=== PATIENT | female | born 1960 | race African-American/Black ===

== ENCOUNTER 2017-05-07 01:56 | Inpatient (IN) | payer OTHER ==
[~2017-05-07] VITALS: Ht 170.2 cm; Wt 158.8 kg
[~2017-05-07 01:56] MED LIST: ATENOLOL; LISI-604 PO
[2017-05-07] MEDS ORDERED: ASPIRIN 81MG TABLET PO ONE (02:30)
[2017-05-07] MEDS ORDERED: NITROGLYCERIN 0.4MG TABLET SL SL PRN (02:30)
[2017-05-07 03:11] LABS: BASOPHILS % 0.2 % (0.0-2.0); HEMATOCRIT. 39.6 % (36.0-48.0); HEMOGLOBIN. 12.9 g/dL (12.0-16.0); LYMPHOCYTES % 8.5 % (20.0-50.0); MEAN CORPUSCULAR HEMOGLOBIN 29.1 pg (28.0-32.0); MEAN CORPUSCULAR VOLUME 89.5 fL (81.0-99.0); MEAN PLATELET VOLUME 7.5 fl (7.4-10.4); MONOCYTES % 5.5 % (2.0-8.0); NEUTROPHILS % 85.8 % (40.0-76.0); PLATELET 386 x1000/uL (130-400); RED BLOOD CELL COUNT 4.43 mill/uL (4.2-5.4); RED CELL DISTRIBUTION WIDTH 14.2 % (11.6-14.6)
[2017-05-07 03:26] LABS: CARBON DIOXIDE 30 mEq/L (21-32); CHLORIDE 105 mEq/L (98-107); TROPONIN I < 0.02 ng/mL (0.00-0.04)
[2017-05-07 03:51] LABS: INR 1.1; PROTHROMBIN TIME 10.9 sec (9.4-11.6)
[2017-05-07] MEDS ORDERED: GUAIFENESIN/CODEINE 100-10MG/5ML UDC PO ONE (05:45)
[2017-05-07] MEDS ORDERED: IPRATROPIUM/ALBUTEROL 0.5-3(2.5)MG/3ML NEB INH PRN (06:15)
[2017-05-07] MEDS ORDERED: CLONIDINE 0.1MG TABLET PO PRN (06:15)
[2017-05-07] MEDS ORDERED: HYDROCODONE/ACETAMINOPHEN 5/325MG TABLET PO PRN (06:15)
[2017-05-07] MEDS ORDERED: ENOXAPARIN 40MG/0.4ML SYR SUBCUT SCH (06:15)
[2017-05-07] MEDS ORDERED: ACETAMINOPHEN 325MG TABLET PO PRN (06:15)
[2017-05-07] MEDS ORDERED: ONDANSETRON HCL 4MG/2ML VIAL IV PRN (06:15)
[2017-05-07] MEDS ORDERED: DOCUSATE SODIUM 100MG CAPSULE PO PRN (06:15)
[2017-05-07] MEDS ORDERED: MORPHINE SULFATE 2 MG/ML CPJ (NOT FOR IM USE) IV PRN (06:15)
[2017-05-07] MEDS: GUAIFENESIN 200MG/10ML SUGAR FREE UDC PO PRN ×2 (09:24→20:31)
[2017-05-07 13:40] VITALS: BP 137/63
[2017-05-07] MEDS: FUROSEMIDE 40MG/4ML VIAL IV SCH (14:41)
[2017-05-07] MEDS: ASPIRIN 81MG EC TABLET PO SCH (14:41)
[2017-05-07] MEDS: AMLODIPINE 10MG TABLET PO SCH (14:42)
[2017-05-07] MEDS: ENOXAPARIN 30MG/0.3ML SYR SUBCUT SCH ×2 (16:09→20:26)
[2017-05-07 17:11] LABS: KETONES URINE NEGATIVE (NEGATIVE); LEUKOCYTE ESTERASE URINE NEGATIVE (NEGATIVE); NITRITE URINE NEGATIVE (NEGATIVE); OCCULT BLOOD URINE 3+ (NEGATIVE); PROTEIN URINE NEGATIVE (NEGATIVE); SPECIFIC GRAVITY URINE 1.007 (1.005-1.030); UROBILINOGEN URINE 0.2 E.U./dL (0.2-1.0)
[2017-05-07 17:14] LABS: CLARITY URINE SLIGHTLY HAZY (CLEAR); COLOR URINE YELLOW (YELLOW)
[2017-05-07 17:20] LABS: *AMPHETAMINES SCREEN URINE NEGATIVE (NEGATIVE); *BARBITURATES SCREEN URINE NEGATIVE (NEGATIVE); *BENZODIAZEPINES SCREEN URINE NEGATIVE (NEGATIVE); *COCAINE SCREEN URINE NEGATIVE (NEGATIVE); CANNABINOID URINE SCREEN NEGATIVE (NEGATIVE); METHADONE URINE SCREEN NEGATIVE (NEGATIVE); OPIATES URINE SCREEN PRESUMTIVE POSITIVE (NEGATIVE); PHENCYCLIDINE URINE SCREEN NEGATIVE (NEGATIVE)
[2017-05-07] MEDS ORDERED: BENZ100C86 PO (18:34)
[2017-05-07] MEDS ORDERED: ALBU18HF2 IH (18:52)
[2017-05-07] MEDS ORDERED: LEVO200T8 PO (18:52)
[2017-05-07] MEDS ORDERED: FLUT1DIS6 IH (18:52)
[2017-05-07] MEDS ORDERED: FLUT9.9S NS (18:52)
[2017-05-07] MEDS ORDERED: P20 PO (18:52)
[2017-05-07] MEDS ORDERED: OCD PO (18:52)
[2017-05-07] MEDS ORDERED: HYDR-3280 MT (18:52)
[2017-05-07 20:00] VITALS: BP 130/67
[2017-05-07] MEDS: ZOLPIDEM TARTRATE 5MG TABLET PO PRN (20:26)
[2017-05-08] VITALS (7 sets, daily range): BP systolic 125–152; BP diastolic 58–84
[2017-05-08 00:33] LABS: CREATINE KINASE 122 IU/L (26-192); CREATINE KINASE MB FRACTION 1.6 ng/mL (0.5-3.6)
[2017-05-08 00:42] LABS: TROPONIN I < 0.02 ng/mL (0.00-0.04)
[2017-05-08 06:42] LABS: HEMATOCRIT. 40.5 % (36.0-48.0); HEMOGLOBIN. 13.3 g/dL (12.0-16.0); LYMPHOCYTES % 16.2 % (20.0-50.0); MEAN CORPUSCULAR HEMOGLOBIN 29.7 pg (28.0-32.0); MEAN CORPUSCULAR VOLUME 90.5 fL (81.0-99.0); MEAN PLATELET VOLUME 7.5 fl (7.4-10.4); MONOCYTES % 6.5 % (2.0-8.0); NEUTROPHILS % 77.3 % (40.0-76.0); PLATELET 368 x1000/uL (130-400); RED BLOOD CELL COUNT 4.48 mill/uL (4.2-5.4); RED CELL DISTRIBUTION WIDTH 14.3 % (11.6-14.6)
[2017-05-08] MEDS: ASPIRIN 81MG EC TABLET PO SCH (08:25)
[2017-05-08] MEDS: AMLODIPINE 10MG TABLET PO SCH (08:25)
[2017-05-08] MEDS: IPRATROPIUM/ALBUTEROL 0.5-3(2.5)MG/3ML NEB INH SCH ×3 (08:25→20:20)
[2017-05-08] MEDS: FUROSEMIDE 40MG/4ML VIAL IV SCH (08:25)
[2017-05-08] MEDS: ENOXAPARIN 30MG/0.3ML SYR SUBCUT SCH ×2 (08:26→21:23)
[2017-05-08 08:30] LABS: CHLORIDE 100 mEq/L (98-107)
[2017-05-08] MEDS: GUAIFENESIN 200MG/10ML SUGAR FREE UDC PO PRN ×4 (08:41→21:23)
[2017-05-08] MEDS ORDERED: PREDNISONE 20MG TABLET PO NR (09:00)
[2017-05-08 09:22] LABS: CARBON DIOXIDE 31 mEq/L (21-32); HDL CHOLESTEROL 75 mg/dL (40-59); LDL CHOLESTEROL 81 mg/dL (5-100)
[2017-05-08] MEDS: LEVOTHYROXINE SODIUM 200MCG TABLET PO SCH (10:52)
[2017-05-09] VITALS: BP 138/62
[2017-05-09] MEDS: ZOLPIDEM TARTRATE 5MG TABLET PO PRN (00:43)
[2017-05-09] MEDS: GUAIFENESIN 200MG/10ML SUGAR FREE UDC PO PRN ×4 (01:20→15:56)
[2017-05-09] MEDS: IPRATROPIUM/ALBUTEROL 0.5-3(2.5)MG/3ML NEB INH SCH ×3 (01:58→15:13)
[2017-05-09 04:00] VITALS: BP 114/55
[2017-05-09] MEDS: LEVOTHYROXINE SODIUM 200MCG TABLET PO SCH (06:15)
[2017-05-09 08:00] VITALS: BP 129/70
[2017-05-09] MEDS ORDERED: PREDNISONE 20MG TABLET PO NR (09:00)
[2017-05-09] MEDS: ENOXAPARIN 30MG/0.3ML SYR SUBCUT SCH (09:09)
[2017-05-09] MEDS: AMLODIPINE 10MG TABLET PO SCH (09:10)
[2017-05-09] MEDS: ASPIRIN 81MG EC TABLET PO SCH (09:10)
[2017-05-09] MEDS: FUROSEMIDE 40MG/4ML VIAL IV SCH (09:10)
[2017-05-09 12:00] VITALS: BP 134/73
[2017-05-09 16:04] VITALS: BP 127/67
[2017-05-10] MEDS ORDERED: PREDNISONE 20MG TABLET PO NR (09:00)
[2017-05-11] MEDS ORDERED: PREDNISONE 20MG TABLET PO NR (09:00)
[2017-05-12] MEDS ORDERED: PREDNISONE 20MG TABLET PO SCH (09:00)
== END 2017-05-09 17:30 | disposition short-term general hospital (02) | DRG 292 ==
LOC: ER 03:26 → 8WST 05:41 → SUPCPDRO 06:10 → ENRESERV 12:55
PROVIDERS: ADMIT Hospitalist; ATTEND Hospitalist
DX: I11.0 Hypertensive heart disease with heart failure (principal); J44.1 Chronic obstructive pulmonary disease with (acute) exacerbation; E44.1 Mild protein-calorie malnutrition; E66.01 Morbid (severe) obesity due to excess calories; I20.0 Unstable angina; E11.9 Type 2 diabetes mellitus without complications; D72.829 Elevated white blood cell count, unspecified; Z68.43 Body mass index [BMI] 50.0-59.9, adult; I50.32 Chronic diastolic (congestive) heart failure; F12.90 Cannabis use, unspecified, uncomplicated; E89.0 Postprocedural hypothyroidism; E05.90 Thyrotoxicosis, unspecified without thyrotoxic crisis or storm
CPT/HCPCS: 36415; 71010; 80053; 80061; 80305; 81001; 82550; 82553; 83735; 83880; 84484; 85025; 85379; 85610; 93005; 93306; 93970; 94640; 94664; 99285; J1650; J1940; J7512; J7620

== ENCOUNTER 2021-03-27 14:39 | Emergency (ER) | payer OTHER ==
[~2021-03-27] VITALS: Ht 167.6 cm; Wt 110.0 kg
[~2021-03-27 14:39] MED LIST changes: +ALBU18HF2 IH; +BENZ100C86 PO; +FLUT1DIS6 IH; +FLUT9.9S NS; +HYDR-4350 MT; +LEVO200T8 PO; -LISI-604 PO; +LISI20TA31 PO; +OCD PO; +P20 PO
[2021-03-27] MEDS ORDERED: MORPHINE SULFATE 4 MG/ML CPJ (NOT FOR IM USE) IV STA (16:24)
[2021-03-27 17:04] LABS: BASOPHILS % 0.6 % (0.0-2.0); EOSINOPHILS % 1.8 % (0.0-5.0); HEMATOCRIT. 40.9 % (36.0-48.0); HEMOGLOBIN. 13.6 g/dL (12.0-16.0); LYMPHOCYTES % 34.5 % (20.0-50.0); MEAN CORPUSCULAR VOLUME 90.1 fL (81.0-99.0); MEAN PLATELET VOLUME 7.5 fl (7.4-10.4); NEUTROPHILS % 55.1 % (40.0-76.0); PLATELET 430 x1000/uL (130-400); RED BLOOD CELL COUNT 4.54 mill/uL (4.2-5.4); RED CELL DISTRIBUTION WIDTH 13.4 % (11.6-14.6)
[2021-03-27 17:12] LABS: CHLORIDE 102 mEq/L (98-107)
[2021-03-27] MEDS ORDERED: MORPHINE SULFATE 4 MG/ML CPJ (NOT FOR IM USE) IV ONE (21:30)
[2021-03-27] MEDS ORDERED: IOHEXOL-350 100 ML BOTTLE ONE (23:18)
[2021-03-28 03:30] VITALS: BP 132/57
== END 2021-03-28 04:00 | disposition short-term general hospital (02) ==
LOC: ER 14:51
DX: R07.2 Precordial pain (principal); M54.89 Other dorsalgia; I11.0 Hypertensive heart disease with heart failure; I50.9 Heart failure, unspecified; J45.909 Unspecified asthma, uncomplicated; E05.90 Thyrotoxicosis, unspecified without thyrotoxic crisis or storm; Z79.899 Other long term (current) drug therapy
CPT/HCPCS: 36415; 71045; 71275; 80053; 83690; 83880; 84484; 85025; 93005; 96374; 96376; 99285; J2270; Q9967

== ENCOUNTER 2022-03-12 12:36 | Emergency (ER) | payer OTHER ==
[~2022-03-12] VITALS: Ht 172.7 cm; Wt 157.4 kg
[2022-03-12 16:07] LABS: BASOPHILS % 0.8 % (0.0-2.0); EOSINOPHILS % 4.2 % (0.0-5.0); HEMATOCRIT. 40.4 % (36.0-48.0); HEMOGLOBIN. 13.5 g/dL (12.0-16.0); LYMPHOCYTES % 42.1 % (20.0-50.0); MEAN CORPUSCULAR HEMOGLOBIN 30.7 pg (28.0-32.0); MEAN CORPUSCULAR VOLUME 92.1 fL (81.0-99.0); MEAN PLATELET VOLUME 8.3 fl (7.4-10.4); MONOCYTES % 12.5 % (2.0-8.0); NEUTROPHILS % 40.4 % (40.0-76.0); PLATELET 293 x1000/uL (130-400); RED BLOOD CELL COUNT 4.39 mill/uL (4.2-5.4); RED CELL DISTRIBUTION WIDTH 14.3 % (11.6-14.6)
[2022-03-12 16:08] LABS: CHLORIDE 102 mEq/L (98-107)
[2022-03-12 16:52] VITALS: BP 140/92
[2022-03-12 17:13] LABS: PROTHROMBIN TIME 10.9 sec (9.6-11.0)
[2022-03-12] MEDS ORDERED: IBUPROFEN 600MG TABLET PO NR (17:27)
[2022-03-12] MEDS ORDERED: SODIUM CHLORIDE 0.9% 1,000 ML IV ONE (17:30)
== END 2022-03-12 19:14 | disposition home or self-care (01) ==
LOC: ER 12:36
DX: R07.89 Other chest pain (principal); I11.0 Hypertensive heart disease with heart failure; I50.9 Heart failure, unspecified; J45.909 Unspecified asthma, uncomplicated; E05.90 Thyrotoxicosis, unspecified without thyrotoxic crisis or storm; F12.10 Cannabis abuse, uncomplicated; Z79.899 Other long term (current) drug therapy
CPT/HCPCS: 36415; 71045; 80053; 83690; 83880; 84484; 85025; 85610; 93005; 99285; J7030

== ENCOUNTER 2024-04-03 23:11 | Emergency (ER) | payer OTHER ==
[~2024-04-03] VITALS: Ht 170.2 cm; Wt 120.0 kg
[2024-04-03 23:21] VITALS: O2SAT 97
[2024-04-04 01:06] LABS: BASOPHILS % 0.5 % (0.0-2.0); EOSINOPHILS % 3.1 % (0.0-5.0); HEMATOCRIT. 41.2 % (36.0-48.0); HEMOGLOBIN. 13.7 g/dL (12.0-16.0); LYMPHOCYTES % 34.1 % (20.0-50.0); MEAN CORPUSCULAR HGB CONC 33.2 g/dL (31.0-37.0); MEAN CORPUSCULAR VOLUME 93.3 fL (81.0-99.0); MEAN PLATELET VOLUME 7.6 fl (7.4-10.4); MONOCYTES % 11.1 % (2.0-8.0); NEUTROPHILS % 51.2 % (40.0-76.0); PLATELET 290 x1000/uL (130-400); RED BLOOD CELL COUNT 4.42 mill/uL (4.2-5.4); RED CELL DISTRIBUTION WIDTH 13.5 % (11.6-14.6)
[2024-04-04 01:14] LABS: CHLORIDE 104 mEq/L (98-107); POTASSIUM 3.7 mEq/L (3.5-5.1); SODIUM 140 mEq/L (136-145)
[2024-04-04 01:15] LABS: CALCIUM 9.6 mg/dL (8.7-10.4); CARBON DIOXIDE 30 mEq/L (21-32)
[2024-04-04 01:20] LABS: CREATININE 1.3 mg/dL (0.6-1.0); GLUCOSE 104 mg/dL (70-105); UREA NITROGEN BLOOD 23 mg/dL (9-23)
[2024-04-04 01:21] LABS: TROPONIN I HIGH SENSITIVITY 6 ng/L (3.0-34)
[2024-04-04 01:31] LABS: ETHANOL BLOOD < 10 mg/dL (<10)
[2024-04-04 05:11] LABS: TROPONIN I HIGH SENSITIVITY 5 ng/L (3.0-34)
[2024-04-04 05:30] VITALS: TEMP 98.1
[2024-04-04 09:20] VITALS: BP 112/71; PULSE 66; RESP 15; O2SAT 99
== END 2024-04-04 09:48 | disposition left against medical advice (07) ==
LOC: ER 23:11 → EDBEDREQ 04-04 02:43 → ER 04-04 09:48
DX: R07.89 Other chest pain (principal); I11.0 Hypertensive heart disease with heart failure; I50.9 Heart failure, unspecified; J45.909 Unspecified asthma, uncomplicated; M10.9 Gout, unspecified; F12.10 Cannabis abuse, uncomplicated; E05.90 Thyrotoxicosis, unspecified without thyrotoxic crisis or storm; Z79.899 Other long term (current) drug therapy; Z79.890 Hormone replacement therapy; Z79.52 Long term (current) use of systemic steroids; Z79.51 Long term (current) use of inhaled steroids
CPT/HCPCS: 36415; 71045; 80048; 80320; 83880; 84484; 85025; 93005; 99285; G0480